=== PATIENT | male | born 1995 | race Hispanic/Latino ===

== ENCOUNTER 2019-03-12 13:46 | Outpatient (CLI) | payer SELFPAY ==
--- NOTE | 2019-03-12 14:42 | RAD ---
PA AND LATERAL VIEWS OF THE CHEST: 03/12/19 HISTORY: Bronchitis, cough, dyspnea. FINDINGS: The cardiomediastinum is normal. The lungs are well expanded and clear. No acute osseous abnormalitie s are seen. IMPRESSION: No radiographic evidence of acute cardiopulmonary process. POS: [facility]
== END 2019-03-12 13:47 | disposition home or self-care (01) ==
LOC: BICRAD 13:46
PROVIDERS: ATTEND Family Medicine
DX: J40 Bronchitis, not specified as acute or chronic (principal)
CPT/HCPCS: 71046